=== PATIENT | female | born 2005 | race Caucasian/White ===

== ENCOUNTER → 2025-04-06 | Day surgery (SDC) | payer OTHER ==
--- NOTE | 2025-04-11 11:11 | USB ---
Pathology Description: Location: 1 o'clock. Marker Left Behind. Needle Type: Bard 14g x 10cm Cores: 2 Skin Nicks: 1 The procedure of ultrasound guided core biopsy was explained to the patient. Benefits, alternatives, and risks were discussed. An informed consent was then obtained. The patient was placed in supine positioning for imaging and for the procedure. The overlying skin was prepped and draped in usual sterile fashion. Lidocaine buffered with bicarbonate was used as anesthetic into the skin and subcutaneous tissue up to area of concern in the right breast. A garcía was made with surgical scalpel. Under ultrasound guidance, a 20 age biopsy gun device was used to obtain 2 core samples. Following this, a biopsy clip was left in lesion. The patient tolerated the procedure well without any immediate complication. The patient was kept in the radiology department for short stay after the procedure and then discharged home in stable condition. Postprocedure mammogram: The patient was transferred to mammography for physician ordered post procedure mammogram for clip placement verification. Post procedure mammogram demonstrates appropriate placement of clip. Impression: Successful, uncomplicated ultrasound guided core biopsy of area of concern in the breast, full pathology results to follow. [facility], , 04/06/2025 11:19 AM. Pathology Results: Result: Benign, Fibroadenoma. Pathology and radiology were reviewed. Findings are concordant. RIGHT BREAST, NEEDLE CORE BIOPSY: Fibroadenoma. Overall Assessment: Benign Management: Diagnostic Mammogram of the right breast in 6 months. Surgical Consultation of the right breast. Electronically signed and approved by: Sidney Morton DO
== END ==
LOC: RADUSWWP 09:58
PROVIDERS: ATTEND Family Medicine
DX: D24.1 Benign neoplasm of right breast (principal); R92.8 Other abnormal and inconclusive findings on diagnostic imaging of breast
CPT/HCPCS: 88305; 19083; A4648